=== PATIENT | male | born 1975 | race Caucasian/White ===

== ENCOUNTER 2016-08-14 00:51 | Observation (INO) ==
[2016-08-14] MEDS: SODIUM CHLORIDE 0.9% 1,000 ML IV STA ×2 (01:04→04:27)
[2016-08-14] MEDS: SUCCINYLCHOLINE 200 MG/10 ML VIAL IV STA ×2 (01:08→04:27)
[2016-08-14] MEDS ORDERED: PROPOFOL 1,000 MG/100 ML BOTTLE IV ONE (01:09)
[2016-08-14] MEDS: ETOMIDATE 20 MG/10 ML VIAL IV ONE ×2 (01:09→04:27)
--- NOTE | 2016-08-14 01:13 | Emergency Department Note ---
Arrival - Arrival Chief Complaint: Altered Mental Status Stated Complaint: Drug ingestion ED Nursing Triage Note: C/C pt brought in by EMS with altered mental status, pt stated he smoked spice. Mode of Arrival: Stretcher Time Seen by Provider: 08/14/16 01:11 - History of Present Illness HPI Narrative: The patient was found writhing in addition from her house unable to comply with commands or answer questions. EMS was called. On EMS arrival the patient was completely disoriented and could not follow commands. At times she was combative. At other times he was simply spastic in motion. They did get him to admit that he smoked some spice. He denies this here. The patient does not know his name, where he is, and is currently pulling on IVs and other support equipment. Additionally, the patient moves with chorioform motion and is unable to control his extremities very well when awake. Allergies/Adverse Reactions: Allergies Allergy/AdvReac Type Severity Reaction Status Date / Time Unable to Obtain Allergy Unverified 08/14/16 01:02 Home Medications: Home Medications Medication Instructions Recorded Confirmed Type Unable To Obtain [Unable to Obtain] 08/14/16 08/14/16 History Review of System - Review of System ROS unobtainable: due to endotracheal tube, due to mental status Medical,Surgical,& Family Hx - Medical History Cardio: No history of: Hypertension (History and past medical history is unobtainable.) - Social History Smoking Status: Unknown if ever smoked Frequency of Alcohol Use: Unknown Type of Drug Use: Unknown Exam Physical Examination: General: Patient is well-developed and well-nourished with mild to moderate distress noted. The patient can not move his extremities in a controlled fashion nor can he follow commands. He has a single left side IV at the wrist which appears to be in peril. HEENT: The extraocular muscles are intact. Oropharynx is moist. There is no erythema or exudate. The tympanic membranes are shiny bilaterally. Neck: There is no adenopathy. Full range of motion is noted without pain. The trachea is midline. No JVD is present. Lungs: There is normal excursion of the chest with the lungs sounding clear bilaterally after placement of the ET tube. No subcostal retractions are present. There is no point tenderness present. Heart: The heart has a tachycardic rate and regular rhythm with no gallops or murmurs. Abdomen: The abdomen is nontender and nondistended with no rebound, guarding, or masses. Bowel sounds are normal. Back: The back demonstrates a normal appearance with no evidence of trauma. Genitourinary: Not examined. Extremities: The extremities demonstrate no clubbing, cyanosis, or edema. The visualized range of motion is normal. They appear atraumatic. Neuro: Cranial nerves II through XII are checked and intact. There is no focal motor or sensory deficit seen in the extremities. Skin: Skin is warm and dry with no evidence of rash. Multiple abrasions are present particularly on the left foot. Vital Signs: Vital Signs Temperature 98 F 08/14/16 00:55 Pulse Rate 136 H 08/14/16 00:55 Respiratory Rate 12 08/14/16 01:18 Blood Pressure 105/58 08/14/16 00:55 O2 Sat by Pulse Oximetry 97 08/14/16 00:55 Procedures - Intubation Time out performed: Yes sedative: Etomidate Mg Given: 20 paralytic: Succinylcholine Mg Given: 100 Laryngoscope: fiber optic video scope Assist Device Used: fiber optic device ET Tube Size: 8 ET Tube Uncuffed: No Tube Secured Location: teeth Tube Placement Confirmation: visualized tube passing through cords, equal breath sounds bilaterally, no breath sounds over epigastrium, confirmation by capnometry, confirmation detector color change Patient Tolerated Procedure: well, no complications Intubation Complications: none Results - Labs CBC & BMP: 08/14/16 01:17 08/14/16 01:17 Lab Results: I have reviewed the patients labs Labs: Lab Results WBC 9.7 T/CUMM (4-12) 08/14/16 01:17 RBC 3.67 MC/CUMM (3.8-5.5) L 08/14/16 01:17 Hgb 11.9 GM/DL (14.0-18.0) L 08/14/16 01:17 Hct 34.4 VOL% (42.0-52.0) L 08/14/16 01:17 MCV 93.7 FL (87-102) 08/14/16 01:17 MCH 32 PG (27-34) 08/14/16 01:17 MCHC 34.6 GM/DL (32-36) 08/14/16 01:17 RDW 12.5 % (9.3-17.3) 08/14/16 01:17 Plt Count 304 T/CUMM (130-400) 08/14/16 01:17 MPV 9.4 FL (9.6-12.0) L 08/14/16 01:17 Neut % (Auto) 51.0 % (38.7-73.9) 08/14/16 01:17 Lymph % (Auto) 34.6 % (21.2-54.2) 08/14/16 01:17 [place] % (Auto) 11.0 % (1.7-12.7) 08/14/16 01:17 Eos % (Auto) 2.3 % (0.00-10.9) 08/14/16 01:17 Baso % (Auto) 0.8 % (0.0-0.8) 08/14/16 01:17 Neut # (Auto) 4.9 10*3/uL (1.4-7.4) 08/14/16 01:17 Lymph # (Auto) 3.4 10*3/uL (1.4-4.0) 08/14/16 01:17 [place] # (Auto) 1.1 10*3/uL (0.11-0.8) H 08/14/16 01:17 Eos # (Auto) 0.2 10*3/uL (0.0-0.87) 08/14/16 01:17 Baso # (Auto) 0.1 10*3/uL (0.0-0.2) 08/14/16 01:17 Immature Gran % 0.3 % 08/14/16 01:17 Nucleated RBC % 0.0 /100WBC 08/14/16 01:17 Immature Gran # 0.03 # 08/14/16 01:17 Nucleated RBCs # 0.00 10*3/uL 08/14/16 01:17 INR 1.1 08/14/16 01:17 PT Patient/Control Mix 11.4 SECS 08/14/16 01:17 Sodium 142 MMOL/L (136-145) 08/14/16 01:17 Potassium 3.5 MMOL/L (3.5-5.1) 08/14/16 01:17 Chloride 104 MMOL/L (98-107) 08/14/16 01:17 Carbon Dioxide 27 MMOL/L (21-32) 08/14/16 01:17 Anion Gap 14.5 MMOL/L (5.0-15.0) 08/14/16 01:17 BUN 12 MG/DL (7-18) 08/14/16 01:17 Creatinine 1.00 MG/DL (0.70-1.30) 08/14/16 01:17 GFR Calculation 104 ML/MIN 08/14/16 01:17 BUN/Creatinine Ratio 12.00 RATIO (6.00-20.00) 08/14/16 01:17 Glucose 125 MG/DL (74-106) H 08/14/16 01:17 Calculated Osmolality 283.1 MOS/KG (273-304) 08/14/16 01:17 Calcium 8.5 MG/DL (8.5-10.1) 08/14/16 01:17 Magnesium 2.2 MG/DL (1.8-2.4) 08/14/16 01:17 Total Bilirubin < 0.39 MG/DL (0.2-1.0) 08/14/16 01:17 AST 15 U/L (0-37) 08/14/16 01:17 ALT 18 U/L (16-61) 08/14/16 01:17 Alkaline Phosphatase 73 U/L (45-117) 08/14/16 01:17 Troponin I < 0.015 NG/ML (0.00-0.045) 08/14/16 01:17 Total Protein 6.1 G/DL (6.4-8.3) L 08/14/16 01:17 Albumin 3.6 G/DL (3.4-5.0) 08/14/16 01:17 Globulin 2.5 G/DL (2.3-3.5) 08/14/16 01:17 Albumin/Globulin Ratio 1.4 RATIO (1.1-2.2) 08/14/16 01:17 TSH 3rd Generation 0.426 uIU/ml (0.358-3.74) 08/14/16 01:17 Urine Color Yellow (Yellow) 08/14/16 01:17 Urine Appearance Clear (Clear) 08/14/16 01:17 Urine pH 5.0 (4.5-8.0) 08/14/16 01:17 Ur Specific [place] 1.008 (1.001-1.035) 08/14/16 01:17 Urine Protein Negative MG/DL 08/14/16 01:17 Urine Glucose (UA) Negative mg/dL (Negative) 08/14/16 01:17 Urine Ketones Negative mg/dL (Negative) 08/14/16 01:17 Urine Blood Negative mg/dL (Negative) 08/14/16 01:17 Urine Nitrate Negative (Negative) 08/14/16 01:17 Urine Bilirubin Negative mg/dL (Negative) 08/14/16 01:17 Urine Urobilinogen < 2.0 EU/DL (0.2-1.0) H 08/14/16 01:17 Urine Leukocytes Negative [place]/ul (Negative) 08/14/16 01:17 Ur Squamous Epith Cells Occasional /HPF (0-10) 08/14/16 01:17 Hyaline Casts 1 /LPF (0-3) 08/14/16 01:17 Urine Mucus Occasional /LPF (Occasional) 08/14/16 01:17 Ur Culture Indicated? Not indicated 08/14/16 01:17 ABG pH 7.308 (7.35-7.45) L 08/14/16 01:40 ABG pCO2 53.2 MM HG (35-48) H 08/14/16 01:40 ABG pO2 497.0 MM HG (80-95) H 08/14/16 01:40 ABG HCO3 24.0 MMOL/L (20-26) 08/14/16 01:40 ABG Total CO2 24.1 MMOL/L (23-27) 08/14/16 01:40 ABG O2 Saturation 99.9 % (95-100) 08/14/16 01:40 ABG Base Excess -0.5 MMOL/L (-2.5-2.5) 08/14/16 01:40 FiO2 100.00 PERCENT (0-100) 08/14/16 01:40 Salicylates < 2.8 MG/DL (2.8-20) L 08/14/16 01:17 Urine Opiates Screen Negative (Negative) 08/14/16 01:17 Acetaminophen 2.8 UG/ML (10-30) L 08/14/16 01:17 Ur Barbiturates Screen Negative (Negative) 08/14/16 01:17 Ur Phencyclidine Scrn Negative (Negative) 08/14/16 01:17 U Amphetamine/Methamph Negative (Negative) 08/14/16 01:17 U Benzodiazepines Scrn Negative (Negative) 08/14/16 01:17 U Cocaine Metab Screen Negative (Negative) 08/14/16 01:17 U Cannabinoids Screen Negative (Negative) 08/14/16 01:17 Serum Alcohol < 15 MG/DL (<15) L 08/14/16 01:17 - Diagnostic Findings Procedure: Chest x-ray: image reviewed by me (ET tube in good position. No acute process within the chest.) Critical Care Time Critical Care Time: Yes Total Critical Care Time: 53 Disposition Clinical Impression: Altered mental status, Multiple substance abuse, Spice ingestion
[2016-08-14] MEDS: VECURONIUM 10 MG VIAL IV ONE ×4 (01:14→05:47)
[2016-08-14 01:24] LABS: Basophils # 0.1 10*3/uL (0.0-0.2); Basophils % 0.8 % (0.0-0.8); Eosinophils # 0.2 10*3/uL (0.0-0.87); Eosinophils % 2.3 % (0.00-10.9); Hematocrit 34.4 VOL% (42.0-52.0); Hemoglobin 11.9 GM/DL (14.0-18.0); Immature Granulocytes % 0.3 %; Immature Granulocytes Absolute 0.03 #; Lymphocytes # 3.4 10*3/uL (1.4-4.0); Lymphocytes % 34.6 % (21.2-54.2); Mean Corpuscular HGB Conc 34.6 GM/DL (32-36); Mean Corpuscular Hemoglobin 32 PG (27-34); Mean Corpuscular Volume 93.7 FL (87-102); Mean Platelet Volume 9.4 FL (9.6-12.0); Monocytes # 1.1 10*3/uL (0.11-0.8); Neutrophils # 4.9 10*3/uL (1.4-7.4); Platelet Count 304 T/CUMM (130-400); Red Blood Count 3.67 MC/CUMM (3.8-5.5); Red Cell Distribution Width 12.5 % (9.3-17.3); White Blood Count 9.7 T/CUMM (4-12)
[2016-08-14] MEDS ORDERED: SUCCINYLCHOLINE 200 MG/10 ML VIAL ONE (01:26)
[2016-08-14] MEDS ORDERED: ETOMIDATE 20 MG/10 ML VIAL IV ONE (01:26)
[2016-08-14] MEDS ORDERED: PROPOFOL 1,000 MG/100 ML BOTTLE IV SCH (01:30)
[2016-08-14 01:32] LABS: INR 1.1; PT Patient Result 11.4 SECS
[2016-08-14 01:34] LABS: Apearance,Urine CLEAR (Clear); Bilirubin,Urine Negative (Negative); Blood, Urine Negative (Negative); Glucose,Urine (UA) Negative (Negative); Hyaline Casts,Urine 1 /LPF (0-3); Ketones,Urine Negative (Negative); Mucus,Urine Occasional /LPF (Occasional); Nitrite,Urine Negative (Negative); Protein,Urine Negative; Squamous Epithelial Cell,Urine Occasional /HPF (0-10); Urine Color Yellow (Yellow); Urine Specific Gravity 1.008 (1.001-1.035); Urine Urobilinogen < 2.0 EU/DL (0.2-1.0)
[2016-08-14 01:41] LABS: Barbiturates Screen,Urine Negative (Negative); Benzodiazepines Screen,Urine Negative (Negative); Cannabinoid Screen,Urine Negative (Negative); Opiate Screen,Urine Negative (Negative); Phencyclidine Screen,Urine Negative (Negative)
[2016-08-14 01:44] LABS: Acetaminophen 2.8 UG/ML (10-30); Salicylate < 2.8 MG/DL (2.8-20)
[2016-08-14 01:46] LABS: ABG Base Excess -0.5 MMOL/L (-2.5-2.5); ABG Oxygen Saturation 99.9 % (95-100); ABG PCO2 53.2 MM HG (35-48); ABG PH 7.308 (7.35-7.45); ABG TCO2 24.1 MMOL/L (23-27); Pt O2 Delivery Device Ventilator
[2016-08-14 01:54] LABS: Alanine Aminotransferase 18 U/L (16-61); Albumin 3.6 G/DL (3.4-5.0); Alkaline Phosphatase 73 U/L (45-117); Aspartate Amino Transferase 15 U/L (0-37); Bilirubin,Total < 0.39 MG/DL (0.2-1.0); Blood Urea Nitrogen 12 MG/DL (7-18); Calcium 8.5 MG/DL (8.5-10.1); Glucose 125 MG/DL (74-106); Magnesium 2.2 MG/DL (1.8-2.4); Osmolality,Calculated 283.1 MOS/KG (273-304); Potassium 3.5 MMOL/L (3.5-5.1); Sodium 142 MMOL/L (136-145); Thyroid Stimulating Hormone 0.426 uIU/ml (0.358-3.74); Total Protein 6.1 G/DL (6.4-8.3); Troponin I Only < 0.015 NG/ML (0.00-0.045)
[2016-08-14] MEDS ORDERED: VECURONIUM 10 MG VIAL IV ONE ×3 (02:08→03:40)
[2016-08-14] MEDS ORDERED: ALBUTEROL 2.5 MG/3 ML NEB RESP TX PRN (03:18)
[2016-08-14] MEDS ORDERED: ONDANSETRON 4 MG/2 ML VIAL IV PRN (03:18)
[2016-08-14] MEDS ORDERED: SODIUM CHLORIDE 0.9% 1,000 ML IV SCH (03:30)
[2016-08-14] MEDS ORDERED: PANTOPRAZOLE 40 MG VIAL IV SCH (03:30)
--- NOTE | 2016-08-14 03:36 | Hospitalist History & Physical ---
Assessment and Plan (1) Altered mental status Status: Acute Current Visit: Yes (2) Multiple substance abuse Status: Acute Assessment and plan: Patient's going to be admitted to ICU for close observation. When patient's awake and alert he can be discharged. Current Visit: Yes History of Present Illness Chief complaint: Spice use History of present illness: Mr. Jenkins is a 41 year old male who was transferred to our hospital. He admitted to EMT that he been smoking spice. He was unable to comply with commands or answer questions. Times it seemed like he was spastic in motion. Patient had to be intubated to protect his airway. After intubation patient and the patient is did wake up and be appropriate. Patient was able to be extubated in the ER. This was after I had already had evaluated him for admission and written orders. Patient is still confused and unable to answer my questions at this time when I went back to see him. Home Medications Medication Instructions Recorded Confirmed Type Unable To Obtain [Unable to Obtain] 08/14/16 08/14/16 History Allergies Allergy/AdvReac Type Severity Reaction Status Date / Time Unable to Obtain Allergy Unverified 08/14/16 01:02 Medical,Surgical,& Family Hx - Medical History Medical History: noncontributory (Unable to obtain) Cardio: No history of: Hypertension (History and past medical history is unobtainable.) - Surgical History Surgical History: noncontributory (Unable to obtain) - Family History Family History: noncontributory (Unable to obtain) - Social History Smoking Status: Unknown if ever smoked Frequency of Alcohol Use: Unknown Type of Drug Use: Unknown ROS unobtainable: due to mental status Exam - Constitutional Vitals: Period Temp Pulse Resp BP Sys/Delgado Pulse Ox Last 24 Hr 98 F 136 12-16 105/58 97 General appearance: normal weight - Head Head exam: Present: normal inspection - Eye Eye exam: Present: EOMI Pupils: Present: JACQUELINE - ENT ENT exam: Present: other (Poor dentition) - Neck Neck exam: Present: normal inspection - Respiratory Respiratory exam: Present: clear to auscultation bilaterally - Cardiovascular Cardiovascular exam: Present: regular rate and rhythm - GI/Abdominal GI/Abdominal exam: Present: normal bowel sounds - Extremities Exam Extremities exam: Present: normal inspection - Back Exam Back exam: Present: normal inspection - Neurological Exam Neurological exam: Present: alert, oriented X3 - Psychiatric Psychiatric exam: Present: normal affect - Skin Skin exam: Present: normal color Results - Labs CBC & BMP: 08/14/16 01:17 08/14/16 01:17
[2016-08-14] MEDS ORDERED: ACETAMINOPHEN 325 MG TABLET PO PRN (03:50)
[2016-08-14] MEDS ORDERED: LORazepam 2 MG/1 ML VIAL IV PRN (03:53)
--- NOTE | 2016-08-14 04:19 | EKG Report ---
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
[2016-08-14 07:00] LABS: Basophils # 0.1 10*3/uL (0.0-0.2); Basophils % 0.6 % (0.0-0.8); Eosinophils # 0.2 10*3/uL (0.0-0.87); Eosinophils % 1.7 % (0.00-10.9); Hematocrit 33.9 VOL% (42.0-52.0); Hemoglobin 11.3 GM/DL (14.0-18.0); Immature Granulocytes % 0.3 %; Immature Granulocytes Absolute 0.03 #; Lymphocytes # 2.7 10*3/uL (1.4-4.0); Lymphocytes % 27.8 % (21.2-54.2); Mean Corpuscular HGB Conc 33.3 GM/DL (32-36); Mean Corpuscular Hemoglobin 31 PG (27-34); Mean Corpuscular Volume 94.2 FL (87-102); Mean Platelet Volume 9.8 FL (9.6-12.0); Monocytes # 0.8 10*3/uL (0.11-0.8); Neutrophils # 6.1 10*3/uL (1.4-7.4); Neutrophils % 61.6 % (38.7-73.9); Platelet Count 250 T/CUMM (130-400); Red Cell Distribution Width 12.5 % (9.3-17.3); White Blood Count 9.9 T/CUMM (4-12)
--- NOTE | 2016-08-14 07:13 | XRay Report ---
History: Endotracheal tube placement Date: 08/14/2016 Study: Chest x-ray AP portable Comparison exam: No previous The endotracheal tube is well-positioned over the distal trachea superior to the tamra. The cardiac silhouette is not enlarged. There is no mediastinal mass. The pulmonary vasculature is not engorged. The lungs are clear except for some minor subsegmental atelectasis in the right lung base. There is no pleural effusion. There is no pneumothorax. Osseous structures are unremarkable. Impression: Satisfactory positioning of endotracheal tube. Minor atelectatic changes right lung base PROCEDURE INTERPRETED AT [facility] DEPARTMENT OF RADIOLOGY Final Report Signed by: Dr. Mary Rosado
[2016-08-14 07:29] LABS: Albumin 3.1 G/DL (3.4-5.0); Bilirubin,Total 0.4 MG/DL (0.2-1.0); Calcium 8.3 MG/DL (8.5-10.1); Osmolality,Calculated 284.8 MOS/KG (273-304); Potassium 3.7 MMOL/L (3.5-5.1); Total Protein 5.3 G/DL (6.4-8.3)
--- NOTE | 2016-08-14 09:07 | Discharge Summary ---
Hospital Course - Hospital Course Hospital Course: 41-year-old male with a history of multiple substance abuse was admitted after smoking spice. Patient was altered and had to be intubated to protect his airway. After intubation patient woke up and was able to follow commands and he was extubated. He has been monitored in the CCU and has returned to baseline. Patient was not trying to hurt himself he was just using drugs for recreational purposes. He is not interested in any kind of rehab. Urine drug screen in the emergency room was negative. Patient will be discharged home to follow-up with his regular doctor as needed. Discharge Plan - Discharge Data Disposition: Disch To Home/Self Care Condition at Discharge: Stable Discharge Diet: regular diet Activity: resume usual activities as tolerated Hygiene: no restrictions Weight Bearing at Discharge: full weight bearing Driving: not for (for two days) - Discharge Medications No Action Unable To Obtain [Unable to Obtain] - Follow Up or Referral Follow Up: pmd, [Other] - 2 Weeks - Forms/Instructions Exam - Constitutional Vitals: Period Temp Pulse Resp BP Sys/Delgado Pulse Ox Last 24 Hr 98 F-98.7 F 72-136 11-16 92-105/54-67 97-100 General appearance: normal weight, no acute distress - Respiratory Respiratory exam: Present: clear to auscultation bilaterally. Absent: rhonchi, wheezes - Cardiovascular Cardiovascular exam: Present: regular rate and rhythm. Absent: systolic murmur - GI/Abdominal GI/Abdominal exam: Present: normal bowel sounds, soft. Absent: tenderness - Extremities Exam Extremities exam: Present: normal inspection, normal capillary refill Discharge Results Labs on day of discharge: Labs from last 24 hours 08/14/16 08/14/16 08/14/16 06:39 06:39 01:40 WBC 9.9 RBC 3.60 L Hgb 11.3 L Hct 33.9 L MCV 94.2 MCH 31 MCHC 33.3 RDW 12.5 Plt Count 250 MPV 9.8 Neut % (Auto) 61.6 Lymph % (Auto) 27.8 [place] % (Auto) 8.0 Eos % (Auto) 1.7 Baso % (Auto) 0.6 Neut # (Auto) 6.1 Lymph # (Auto) 2.7 [place] # (Auto) 0.8 Eos # (Auto) 0.2 Baso # (Auto) 0.1 Immature Gran % 0.3 Nucleated RBC % 0.0 Immature Gran # 0.03 Nucleated RBCs # 0.00 INR PT Patient/Control Mix ABG pH 7.308 L ABG pCO2 53.2 H ABG pO2 497.0 H ABG HCO3 24.0 ABG Total CO2 24.1 ABG O2 Saturation 99.9 ABG Base Excess -0.5 FiO2 100.00 Sodium 144 Potassium 3.7 Chloride 110 H Carbon Dioxide 28 Anion Gap 9.7 BUN 9 Creatinine 0.80 GFR Calculation 124 BUN/Creatinine Ratio 11.00 Glucose 95 Calculated Osmolality 284.8 Calcium 8.3 L Magnesium Total Bilirubin 0.40 AST 12 ALT 16 Alkaline Phosphatase 70 Troponin I Total Protein 5.3 L Albumin 3.1 L Globulin 2.2 L Albumin/Globulin Ratio 1.4 TSH 3rd Generation Urine Color Urine Appearance Urine pH Ur Specific [place] Urine Protein Urine Glucose (UA) Urine Ketones Urine Blood Urine Nitrate Urine Bilirubin Urine Urobilinogen Urine Leukocytes Ur Squamous Epith Cells Hyaline Casts Urine Mucus Ur Culture Indicated? Salicylates Urine Opiates Screen Acetaminophen Ur Barbiturates Screen Ur Phencyclidine Scrn U Amphetamine/Methamph U Benzodiazepines Scrn U Cocaine Metab Screen U Cannabinoids Screen Serum Alcohol Treponema pallidum IgG Blood Type Antibody Screen 08/14/16 08/14/16 08/14/16 01:17 01:17 01:17 WBC RBC Hgb Hct MCV MCH MCHC RDW Plt Count MPV Neut % (Auto) Lymph % (Auto) [place] % (Auto) Eos % (Auto) Baso % (Auto) Neut # (Auto) Lymph # (Auto) [place] # (Auto) Eos # (Auto) Baso # (Auto) Immature Gran % Nucleated RBC % Immature Gran # Nucleated RBCs # INR PT Patient/Control Mix ABG pH ABG pCO2 ABG pO2 ABG HCO3 ABG Total CO2 ABG O2 Saturation ABG Base Excess FiO2 Sodium Potassium Chloride Carbon Dioxide Anion Gap BUN Creatinine GFR Calculation BUN/Creatinine Ratio Glucose Calculated Osmolality Calcium Magnesium Total Bilirubin AST ALT Alkaline Phosphatase Troponin I Total Protein Albumin Globulin Albumin/Globulin Ratio TSH 3rd Generation Urine Color Urine Appearance Urine pH Ur Specific [place] Urine Protein Urine Glucose (UA) Urine Ketones Urine Blood Urine Nitrate Urine Bilirubin Urine Urobilinogen Urine Leukocytes Ur Squamous Epith Cells Hyaline Casts Urine Mucus Ur Culture Indicated? Salicylates < 2.8 L Urine Opiates Screen Negative Acetaminophen 2.8 L Ur Barbiturates Screen Negative Ur Phencyclidine Scrn Negative U Amphetamine/Methamph Negative U Benzodiazepines Scrn Negative U Cocaine Metab Screen Negative U Cannabinoids Screen Negative Serum Alcohol Treponema pallidum IgG Blood Type O POSITIVE Antibody Screen Negative 08/14/16 08/14/16 08/14/16 01:17 01:17 01:17 WBC RBC Hgb Hct MCV MCH MCHC RDW Plt Count MPV Neut % (Auto) Lymph % (Auto) [place] % (Auto) Eos % (Auto) Baso % (Auto) Neut # (Auto) Lymph # (Auto) [place] # (Auto) Eos # (Auto) Baso # (Auto) Immature Gran % Nucleated RBC % Immature Gran # Nucleated RBCs # INR PT Patient/Control Mix ABG pH ABG pCO2 ABG pO2 ABG HCO3 ABG Total CO2 ABG O2 Saturation ABG Base Excess FiO2 Sodium 142 Potassium 3.5 Chloride 104 Carbon Dioxide 27 Anion Gap 14.5 BUN 12 Creatinine 1.00 GFR Calculation 104 BUN/Creatinine Ratio 12.00 Glucose 125 H Calculated Osmolality 283.1 Calcium 8.5 Magnesium 2.2 Total Bilirubin < 0.39 AST 15 ALT 18 Alkaline Phosphatase 73 Troponin I < 0.015 Total Protein 6.1 L Albumin 3.6 Globulin 2.5 Albumin/Globulin Ratio 1.4 TSH 3rd Generation 0.426 Urine Color Yellow Urine Appearance Clear Urine pH 5.0 Ur Specific [place] 1.008 Urine Protein Negative Urine Glucose (UA) Negative Urine Ketones Negative Urine Blood Negative Urine Nitrate Negative Urine Bilirubin Negative Urine Urobilinogen < 2.0 H Urine Leukocytes Negative Ur Squamous Epith Cells Occasional Hyaline Casts 1 Urine Mucus Occasional Ur Culture Indicated? Not indicated Salicylates Urine Opiates Screen Acetaminophen Ur Barbiturates Screen Ur Phencyclidine Scrn U Amphetamine/Methamph U Benzodiazepines Scrn U Cocaine Metab Screen U Cannabinoids Screen Serum Alcohol < 15 L Treponema pallidum IgG Nonreactive Blood Type Antibody Screen 08/14/16 08/14/16 01:17 01:17 WBC 9.7 RBC 3.67 L Hgb 11.9 L Hct 34.4 L MCV 93.7 MCH 32 MCHC 34.6 RDW 12.5 Plt Count 304 MPV 9.4 L Neut % (Auto) 51.0 Lymph % (Auto) 34.6 [place] % (Auto) 11.0 Eos % (Auto) 2.3 Baso % (Auto) 0.8 Neut # (Auto) 4.9 Lymph # (Auto) 3.4 [place] # (Auto) 1.1 H Eos # (Auto) 0.2 Baso # (Auto) 0.1 Immature Gran % 0.3 Nucleated RBC % 0.0 Immature Gran # 0.03 Nucleated RBCs # 0.00 INR 1.1 PT Patient/Control Mix 11.4 ABG pH ABG pCO2 ABG pO2 ABG HCO3 ABG Total CO2 ABG O2 Saturation ABG Base Excess FiO2 Sodium Potassium Chloride Carbon Dioxide Anion Gap BUN Creatinine GFR Calculation BUN/Creatinine Ratio Glucose Calculated Osmolality Calcium Magnesium Total Bilirubin AST ALT Alkaline Phosphatase Troponin I Total Protein Albumin Globulin Albumin/Globulin Ratio TSH 3rd Generation Urine Color Urine Appearance Urine pH Ur Specific [place] Urine Protein Urine Glucose (UA) Urine Ketones Urine Blood Urine Nitrate Urine Bilirubin Urine Urobilinogen Urine Leukocytes Ur Squamous Epith Cells Hyaline Casts Urine Mucus Ur Culture Indicated? Salicylates Urine Opiates Screen Acetaminophen Ur Barbiturates Screen Ur Phencyclidine Scrn U Amphetamine/Methamph U Benzodiazepines Scrn U Cocaine Metab Screen U Cannabinoids Screen Serum Alcohol Treponema pallidum IgG Blood Type Antibody Screen DS: Provider Date of admission: 08/14/16 03:30 Primary care physician: . No PCP Attending physician on admission: Juve Olsen MD Discharging clinician: Anneliese Doss MD
[2016-08-14 10:14] VITALS: BP 115/83
== END 2016-08-14 11:10 | disposition home or self-care (01) ==
LOC: EDBD → N.EDINP 00:51 → N.ED 00:51 → SUATTDRO 03:30 → N.CC 03:55
PROVIDERS: ADMIT Internal Medicine; ATTEND Internal Medicine